=== PATIENT | female | born 1960 | race Caucasian/White ===

== ENCOUNTER 2019-07-02 20:10 | Emergency (ER) | payer BC ==
[2019-07-02] MEDS: ONDANSETRON HCL/PF 4 MG/ 2ML VIAL IM ONE (20:45)
[2019-07-02] MEDS: KETOROLAC TROMETHAMINE 60 MG/2 ML VIAL IM ONE (20:45)
--- NOTE | 2019-07-02 21:16 | ED Physician Documentation ---
Headache - HISTORIAN Historian: patient - HPI Stated Complaint: "I have a migraine that started last evening and just progressed today" Chief Complaint: Headache Additional Information: Patient presents to ED with a 24 hour history of migraine. Patient states her headache started yesterday and progressed today causing nausea/vomiting. She states she has frequent headaches but has only had to seek ER care in the past 4 times. She has taken Fiorecet and Advil today. Onset: hours (24) Timing: gradual Exposure To: none Severity: moderate Quality: similar to previous, sharp, pounding Associated Symptoms: sensitivity to light, nausea, vomiting. denies: fever, problems with vision Preceding Symptoms: denies: visual disturbance Exacerbated By: light, noise, movement - ROS NEURO/PSYCH: denies: confusion EYES/ENT: denies: difficulty swallowing CVS/RESP: denies: chest pain, shortness of breath GI/: denies: abdominal pain MS/SKIN/LYMPH: denies: muscle aches - PAST HX Medical History: migraines Allergies/Adverse Reactions: Allergies Allergy/AdvReac Type Severity Reaction Status Date / Time No Known Allergies Allergy Verified 07/02/19 20:54 Home Medications: Ambulatory Orders Medication Instructions Recorded Acetaminophen [Tylenol] 325 mg PO PRN 07/02/19 Amitriptyline HCl [Elavil] 25 mg PO DAILY 07/02/19 Butalbital/Acetaminophen 1 tab PO PRN 07/02/19 [Butalbital-Acetaminophn 50-325] Carisoprodol 350 mg PO PRN 07/02/19 Citalopram Hydrobromide 40 mg PO DAILY 07/02/19 [Citalopram HBr] Clonazepam 0.5 mg PO PRN 07/02/19 Estradiol [Estrace 0.01% Vaginal 1 applic VG WEEK 07/02/19 Cream] Estradiol [Yuvafem] 10 mcg VG WEEKLY AT 0600 07/02/19 Fluticasone Furoate [Arnuity 50 mcg PO DAILY 07/02/19 Ellipta] Guaifenesin [Mucinex] 600 mg PO PRN 07/02/19 Hydrocodone/Acetaminophen 1 tab PO PRN 07/02/19 [Hydrocodone-Acetamin 7.5-300] Hyoscyamine Sulfate 0.125 tab PO PRN 07/02/19 Loratadine 10 mg PO PRN 07/02/19 Magnesium Hydroxide [Milk of 30 ml PO PRN 07/02/19 Magnesia] Melatonin 5 mg PO HS 07/02/19 Methocarbamol 500 mg PO DAILY 07/02/19 Pantoprazole Sodium 40 mg PO DAILY 07/02/19 Pseudoephedrine HCl [Sudafed] 30 mg PO PRN 07/02/19 Simvastatin 20 mg PO DAILY 07/02/19 Topiramate [Topamax] 25 mg PO DAILY 07/02/19 diphenhydrAMINE HCL [Benadryl] 25 mg PO PRN 07/02/19 - SOCIAL HX Smoking History: non-smoker Alcohol Use: none Drug Use: none - Family HX Family History: none - VITAL SIGNS Vital Signs: Vital Signs Temp Pulse Resp BP Pulse Ox 98.2 F 78 10 L 119/76 98 07/02/19 20:15 07/02/19 20:15 07/02/19 20:15 07/02/19 20:15 07/02/19 20:15 - REVIEWED ASSESSMENTS Nursing Assessment Reviewed: Yes Vitals Reviewed: Yes ED Results Lab/Radiology - Orders Orders: ED Orders Category Date Time Status Ketorolac Tromethamine [Toradol] Med 07/02/19 20:43 Discontinued 60 mg IM NOW ONE Ondansetron HCl/Pf [Zofran] Med 07/02/19 20:43 Discontinued 4 mg IM NOW ONE Headache Physical Exam - EXAM General Appearance: no acute distress, alert EENT: PERRL Neck: supple Respiratory: no resp distress, chest non-tender, breath sounds normal CVS: reg. rate & rhythm, heart sounds nml Abdomen: non-tender, nml bowel sounds, no distention Skin: color nml Extremitites: non-tender, no edema - NEURO/PSYCH Higher Functions: alert, oriented x3, nml speech, mood/affect nml Cranial: nml as tested, no evidence of acute CVA Cerebellar: nml as tested Sensorimotor: motor nml, sensation nml Discharge Clincal Impression: Migraine Qualifiers: Migraine type: without aura Status migrainosus presence: without status migrai nosus Intractability: not intractable Qualified Code(s): G43.009 - Migraine without aura, not intractable, without status migrainosus Referrals: Primary Doctor,No [Primary Care Provider] - 2 Days Additional Instructions: 1. Take home medications as previously prescribed 2. Avoid migraine triggers 3. Drink plenty of fluids to maintain proper hydration. 4. Follow up with PCP within 1 week 5. Return to ER for new or worsening symptoms Condition: Stable Disposition: 01 HOME, SELF-CARE Decision to Admit: NO Date of Decison to Admit: 07/02/19 Decision Time: 21:27
[2019-07-02 22:27] VITALS: BP 102/68
== END 2019-07-02 21:30 | disposition home or self-care (01) ==
LOC: ED 20:10
DX: G43.009 Migraine without aura, not intractable, without status migrainosus (principal)
CPT/HCPCS: 96372; 99282; 99284; J1885; J2405